=== PATIENT | male | born 1970 | race Caucasian/White ===

== ENCOUNTER 2020-02-20 21:23 | Emergency (ER) | payer OTHER, MEDICAID ==
[~2020-02-20] VITALS: Ht 172.7 cm; Wt 76.2 kg
[2020-02-20 21:30] VITALS: BP_SYST 123
--- NOTE | 2020-02-20 22:12 | NUR ---
Patient to ER bed 4 to gown for evaluation. Side rails up. Report given to Williams MESSINA.
--- NOTE | 2020-02-20 22:15 | NUR ---
[facility] TO ASSUME CARE, PT HER FOR LEFT LOWER BACK PAIN S/P FALL 4 WEEKS AGO. FELL "FOR SOME REASON" UNABLE TO PROVIDE DETAILS. SKIN WARM AND DRY. NO DISTRESS RESP UNLABORED, SKIN WARM DRY/GOOD COLOR. COMMUNICATES CLEARLY IN FULL COMPLETE SENTENCES. FACE MASK PROVIDED.
--- NOTE | 2020-02-20 22:46 | NUR ---
SENT TO CT, BLOOD OBTAINED. NO CHANGE IN CONDITION
--- NOTE | 2020-02-20 22:51 | NUR ---
ASSUMED CARE OF PT. PT IN NO ACUTE DISTRESS AT THIS TIME.
[2020-02-20 22:53] LABS: BASOPHILS # (AUTO) 0.1 K/uL (0.0-0.2); BASOPHILS % (AUTO) 0.8 % (0.0-2.0); EOSINOPHILS # (AUTO) 0.1 K/uL (0.0-0.4); HEMATOCRIT 40.8 % (36-54); HEMOGLOBIN 13.6 g/dL (14.0-18.0); LYMPHOCYTES # (AUTO) 1.5 K/uL (1.0-5.5); LYMPHOCYTES % (AUTO) 20.6 % (20.5-51.5); MEAN CORPUSCULAR HEMOGLOBIN 32 pg (27-31); MEAN CORPUSCULAR HGB CONC 33 % (32-36); MEAN CORPUSCULAR VOLUME 95 fL (79.0-98.0); MONOCYTES # (AUTO) 0.7 K/uL (0.0-1.0); MONOCYTES % (AUTO) 9.7 % (1.7-9.3); NEUTROPHILS # (AUTO) 4.8 K/uL (1.8-7.7); NEUTROPHILS % (AUTO) 67.9 % (40.0-70.0); PLATELET COUNT (AUTO) 224 K/uL (130-430); RED BLOOD CELL COUNT(AUTO) 4.28 MIL/uL (4.2-6.2); RED CELL DISTRIBUTION WIDTH 14.4 % (9.0-15.0); WHITE BLOOD COUNT (AUTO) 7.1 K/uL (4.8-10.8)
[2020-02-20 23:06] LABS: BILIRUBIN,URINE NEGATIVE (NEGATIVE); BLOOD, URINE NEGATIVE (NEGATIVE); CLARITY/URINE CLEAR (CLEAR); COLOR,URINE YELLOW (YELLOW); GLUCOSE,URINE NEGATIVE (NEGATIVE); KETONES,URINE NEGATIVE (NEGATIVE); LEUKOCYTE ESTERASE ,URINE NEGATIVE (NEGATIVE); NITRITE, URINE NEGATIVE (NEGATIVE); PROTEIN URINE NEGATIVE (NEGATIVE)
[2020-02-20 23:11] LABS: CREATININE 1.18 mg/dL (0.55-1.30); POTASSIUM 3.6 mmol/L (3.5-5.1)
[2020-02-20 23:16] LABS: ALBUMIN 3.2 g/dL (3.4-4.8); TOTAL BILIRUBIN 0.3 mg/dL (0.0-1.0)
[2020-02-20 23:25] VITALS: BP_SYST 123
--- NOTE | 2020-02-20 23:25 | NUR ---
Patient given written and verbal discharge instructions and verbalizes understanding. DR. NOAH GIRON MD discussed with patient the results and treatment provided. Patient in stable condition. ID arm band removed. Rx of given. Patient educated on pain management and to follow up with PMD. Pain Scale 0/10. Opportunity for questions provided and answered. Medication side effect fact sheet provided.
== END 2020-02-20 23:25 | disposition home or self-care (01) ==
LOC: SED 21:23
DX: M54.5 Low back pain (principal); W18.40XA Slipping, tripping and stumbling without falling, unspecified, initial encounter; Y93.89 Activity, other specified; Y92.89 Other specified places as the place of occurrence of the external cause; Y99.8 Other external cause status
CPT/HCPCS: 36415; 72131; 80053; 81003; 85025; 99284